=== PATIENT | male | born 1940 | race Caucasian/White ===

== ENCOUNTER 2020-11-14 11:25 | Day surgery (SDC) | payer MEDICARE, OTHER ==
[2020-11-11 09:40] LABS: BASOPHILS % (AUTO) 1 % (0-1); EOSINOPHILS % (AUTO) 3 % (1-7); LYMPHOCYTES % (AUTO) 36 % (22-44); MEAN PLATELET VOLUME 8.3 fL (7.4-10.4); MONOCYTES % (AUTO) 12 % (2-9); NEUTROPHILS % (AUTO) 49 % (42-75); PLATELET COUNT 165 x10^3/uL (130-400); RED BLOOD COUNT 4.68 x10^6/uL (4.38-5.82)
[2020-11-11 09:50] LABS: ALANINE AMINOTRANSFERASE 45 U/L (12-78); ALBUMIN 3.7 g/dL (3.4-5.0); CALCIUM 8.6 mg/dL (8.5-10.1); CREATININE 0.98 mg/dL (0.7-1.3)
[2020-11-11 09:52] LABS: ALKALINE PHOSPHATASE 77 U/L (45-117); BILIRUBIN,TOTAL 0.8 mg/dL (0.2-1.0); TOTAL PROTEIN 6.5 g/dL (6.4-8.2)
[2020-11-11 10:13] LABS: ANION GAP 4 mmol/L (5-15); CHLORIDE 109 mmol/L (98-107)
[~2020-11-14] VITALS: Ht 175.3 cm; Wt 74.9 kg
[~2020-11-14 11:25] MED LIST: LACT1CAP47 PO; M-171CAP PO; MULT-115 PO; TAMS-11 PO; VIT1TABL34 PO
[2020-11-14 11:59] VITALS: BP 134/78
[2020-11-14] MEDS ORDERED: CHLORHEXIDINE 15 ML UDC PO ONE (12:00)
[2020-11-14] MEDS ORDERED: LACTATED RINGERS 1,000 ML IV SCH (12:00)
[2020-11-14] MEDS ORDERED: ROCURONIUM 10MG/ML,5ML ONE (12:11)
[2020-11-14] MEDS ORDERED: CEFAZOLIN 1,000 MG ONE (12:11)
[2020-11-14] MEDS ORDERED: FENTANYL PF 250 MCG/5ML ONE (12:11)
[2020-11-14] MEDS ORDERED: GLYCOPYRROLATE 0.2MG/1ML, 5ML ONE (12:11)
[2020-11-14] MEDS ORDERED: NEOSTIGMINE 1 MG/ML, 10ML ONE (12:11)
[2020-11-14] MEDS ORDERED: PROPOFOL 10 MG/ML, 20ML ONE (12:11)
[2020-11-14] MEDS ORDERED: EPINEPHRINE 1 MG/ML, 1ML ONE (12:18)
[2020-11-14] MEDS ORDERED: BUPIVACAINE/PF 0.5% ONE (12:18)
[2020-11-14] MEDS ORDERED: PHENYLEPHRINE 10 MG/ML ONE (13:43)
[2020-11-14] MEDS ORDERED: MEPERIDINE/PF 25MG/0.5ML IVPush PRN (14:00)
[2020-11-14] MEDS ORDERED: OXYcodone 5 MG/5 ML ORAL.SOL UDC PO PRN (14:00)
[2020-11-14] MEDS ORDERED: LABETALOL 5MG/ML, 20ML IV PRN (14:00)
[2020-11-14] MEDS ORDERED: FENTANYL PF 100 MCG/2ML IV PRN (14:00)
[2020-11-14] MEDS ORDERED: ACETAMINOPHEN 325 MG TABLET PO PRN (14:00)
[2020-11-14] MEDS ORDERED: morphine SULFATE 10 MG/ML, 1ML IVPush PRN (14:00)
[2020-11-14] MEDS ORDERED: ONDANSETRON 2MG/ML, 2ML IVPush PRN (14:00)
[2020-11-14] MEDS ORDERED: HYDROmorphone 1 MG/ML, 1ML INJ IVPush PRN (14:00)
[2020-11-14] MEDS ORDERED: hydrALAzine 20 MG/ML, 1ML IV PRN (14:00)
[2020-11-14] MEDS ORDERED: IBUP-1223 PO (14:45)
[2020-11-14] MEDS ORDERED: ACET-1600 PO (14:45)
[2020-11-14] MEDS ORDERED: OXYC5TAB2 PO (14:45)
== END 2020-11-14 16:15 | disposition home or self-care (01) ==
LOC: OUT 11:25
PROVIDERS: ATTEND Surgery
DX: K40.90 Unilateral inguinal hernia, without obstruction or gangrene, not specified as recurrent (principal); N40.0 Benign prostatic hyperplasia without lower urinary tract symptoms; Z20.822 Contact with and (suspected) exposure to COVID-19; Z79.899 Other long term (current) drug therapy
CPT/HCPCS: 36415; 49650; 71046; 80053; 85025; 93005; C1781; J0171; J0690; J2370; J2704; J2710; J3010; J7120; U0003; U0005